=== PATIENT | female | born 1965 | race Two or more races ===

== ENCOUNTER 2023-12-28 09:13 | Emergency (ER) | payer OTHER ==
[~2023-12-28] VITALS: Ht 160 cm; Wt 88.5 kg
[2023-12-28] MEDS ORDERED: TENORMIN50 M1 (09:41)
[2023-12-28] MEDS ORDERED: HYDROCHLOROTHIA25 MG (09:42)
[2023-12-28] MEDS ORDERED: ONDANSETRON HCL 2 MG/ML VIAL IV ONE (10:00)
[2023-12-28] MEDS ORDERED: FAMOtidine 10 MG/ML (4ML VIAL) IV ONE (10:00)
[2023-12-28] MEDS ORDERED: 0.9 % SODIUM CHLORIDE 1,000 ML IV ONE (10:00)
[2023-12-28] MEDS ORDERED: ONDANSETRON HCL 2 MG/ML VIAL ONE (10:03)
[2023-12-28] MEDS ORDERED: FAMOTIDINE/PF 20 MG/2 ML VIAL ONE (10:03)
[2023-12-28 10:28] LABS: HEMATOCRIT 40.7 % (36.0-45.00); HEMOGLOBIN 13.9 g/dL (12.0-15.00); MEAN CELL VOLUME 84.5 fL (80.00-100.00); MEAN CORPUSCULAR HEMOGLOBIN 28.9 pg (27.00-32.0); MEAN CORPUSCULAR HGB CONC 34.2 g/dl (32.0-36.0); PLATELET COUNT 192 K/uL (150-450); RED BLOOD COUNT 4.81 M/uL (4.00-6.00); RED CELL DISTRIBUTION WIDTH 15.4 % (11.5-14.5)
[2023-12-28 11:03] LABS: ALBUMIN 3.4 gm/dL (3.4-5.0); BILIRUBIN TOTAL 0.56 mg/dL (0.3-1.2); CALCIUM 9.3 mg/dL (8.5-10.1); CREATININE SERUM 0.82 mg/dL (0.55-1.02); GFR 71.6; GLOBULINA 4.5 G/DL (2.4-3.5); POTASSIUM 4.03 mEq/L (3.5-5.1); TOTAL PROTEIN 7.9 gm/dL (6.4-8.2)
[2023-12-28] MEDS ORDERED: METRONIDAZOLE500 MG PO (13:12)
[2023-12-28] MEDS ORDERED: PEPCID AC20 MG PO (13:12)
== END 2023-12-28 13:28 | disposition home or self-care (01) ==
LOC: ER 09:15
PROVIDERS: General Practice
DX: R19.7 Diarrhea, unspecified (principal); Z88.0 Allergy status to penicillin; I10 Essential (primary) hypertension